=== PATIENT | female | born 1955 | race Caucasian/White ===

== ENCOUNTER → 2016-08-05 | Outpatient (CLI) | payer BC ==
[2016-08-05 10:04] LABS: ALT/SGPT 107 U/L (12-78); AST/SGOT 57 U/L (15-37); BLOOD UREA NITROGEN 20 mg/dl (7-18); BUN/CREATININE RATIO 21.8 (10-20); CALCIUM 8.8 mg/dl (8.5-10.1); CARBON DIOXIDE 27 mmol/L (21-32); CHLORIDE 106 mmol/L (98-107); CREATININE 0.91 mg/dl (0.60-1.20); GLUCOSE 144 mg/dl (70-99); POTASSIUM 4.5 mmol/L (3.5-5.1); SODIUM 140 mmol/L (136-145)
[2016-08-05 10:08] LABS: ALB/GLOB RATIO 1.1 (0.9-2); ALKALINE PHOSPHATASE 91 U/L (45-117); CHOLESTEROL 201 mg/dl (0-200); CHOLESTEROL/HDL RATIO 3.7; HDL CHOLESTEROL 54 mg/dl; LDL CHOLESTEROL CALCULATED 124 mg/dl; TRIGLYCERIDES 116 mg/dl (0-150); VERY LOW DENSITY LIPOPROT CALC 23 mg/dl
[2016-08-05 10:09] LABS: ESTIMATED AVERAGE GLUCOSE 137 mg/dl; HA1C FLAG Normal (Normal)
== END | disposition home or self-care (01) ==
LOC: C.LAB 06:50
PROVIDERS: ATTEND Nurse Practitioner Family
DX: E78.5 Hyperlipidemia, unspecified (principal); E11.9 Type 2 diabetes mellitus without complications

== ENCOUNTER → 2016-11-24 | Outpatient (CLI) | payer BC | END | disposition home or self-care (01) | LOC: C.PAPS 16:12 | PROVIDERS: ATTEND Obstetrics & Gynecology | DX: Z01.419 Encounter for gynecological examination (general) (routine) without abnormal findings (principal) ==

== ENCOUNTER → 2017-05-01 | Outpatient (CLI) | payer BC ==
[2017-05-01 10:24] LABS: BLOOD UREA NITROGEN 23 mg/dl (7-18); BUN/CREATININE RATIO 25.5 (10-20); CALCIUM 9.1 mg/dl (8.5-10.1); CARBON DIOXIDE 28 mmol/L (21-32); CHLORIDE 104 mmol/L (98-107); CREATININE 0.88 mg/dl (0.60-1.20); GLUCOSE 142 mg/dl (70-99); POTASSIUM 4.5 mmol/L (3.5-5.1); SODIUM 141 mmol/L (136-145)
[2017-05-01 10:28] LABS: CHOLESTEROL 203 mg/dl (0-200); CHOLESTEROL/HDL RATIO 3.4; HDL CHOLESTEROL 59 mg/dl; LDL CHOLESTEROL CALCULATED 117 mg/dl; TRIGLYCERIDES 137 mg/dl (0-150); VERY LOW DENSITY LIPOPROT CALC 27 mg/dl
[2017-05-01 10:46] LABS: ESTIMATED AVERAGE GLUCOSE 143 mg/dl; HA1C FLAG Normal (Normal)
== END | disposition home or self-care (01) ==
LOC: C.LAB 06:46
PROVIDERS: ATTEND Nurse Practitioner
DX: E78.5 Hyperlipidemia, unspecified (principal); I10 Essential (primary) hypertension; E11.9 Type 2 diabetes mellitus without complications

== ENCOUNTER → 2017-05-25 | Outpatient (CLI) | payer BC ==
--- NOTE | 2017-05-25 14:36 | MAMMOGRAPHY REPORT ---
BILATERAL DIGITAL SCREENING MAMMOGRAM TOMOSYNTHESIS WITH CAD: 05/25/2017 CLINICAL HISTORY: Routine screening. Patient has no complaints. TECHNIQUE: Breast tomosynthesis in addition to standard 2D mammography was performed. Current study was also evaluated with a Computer Aided Detection (CAD) system. COMPARISON: Comparison is made to exams dated: 05/23/2016 mammogram, 05/19/2015 mammogram, 05/13/2014 mammogram, 05/10/2013 mammogram, 05/07/2012 mammogram, and 05/07/2012 ultrasound - [facility]. BREAST COMPOSITION: The tissue of both breasts is heterogeneously dense, which may obscure small mas ses. FINDINGS: No suspicious masses, calcifications, or areas of architectural distortion are noted in ei ther breast. There has been no significant interval change compared to prior exams. Scattered bilater al benign-appearing calcifications are not significantly changed. Scattered bilateral benign-appeari ng calcifications are not significantly changed. IMPRESSION: ACR BI-RADS CATEGORY 2: BENIGN There is no mammographic evidence of malignancy. A 1 year screening mammogram is recommended. The pa tient will receive written notification of the results. Approximately 10% of breast cancers are not detected with mammography. A negative mammographic report should not delay biopsy if a clinically suggestive mass is present. Raine Carvalho M.D. ah/:05/25/2017 07:52:23 Chrome Cleaner: Diane LEMOS(R)(M), [facility] letter sent: Normal 1/2 BI-RADS Code: ACR BI-RADS Category 2: Benign
== END | disposition home or self-care (01) ==
LOC: C.MAMM 07:25
PROVIDERS: ATTEND Obstetrics & Gynecology
DX: Z12.31 Encounter for screening mammogram for malignant neoplasm of breast (principal)

== ENCOUNTER 2024-09-04 05:49 | Inpatient (IN) ==
--- NOTE | 2024-08-19 13:05 | PAT Medication Instructions ---
Medication Instructions Date of Service August 19, 2024 Home Medications Medication Instructions Recorded pen needle, diabetic 32 gauge x #50 ea 03/03/23" (BD Mira 2nd Gen Pen Needle) metformin 500 mg tablet,extended See Rx Instructions PO BID #180 08/04/23 release 24 hr tabs empagliflozin 25 mg tablet 25 mg PO DAILY #30 tabs 11/15/23 lisinopril 5 mg tablet 5 mg PO DAILY #90 tabs 03/13/24 rosuvastatin 40 mg tablet 40 mg PO DAILY #90 tabs 03/14/24 blood sugar diagnostic (OneTouch #100 ea 04/29/24 Verio test strips) lancets 33 gauge #100 ea 04/29/24 semaglutide 0.25 mg or 0.5 mg (2 0.5 mg (0.736 mL) subcut Q7D #3 mL 07/26/24 mg/3 mL) subcutaneous pen injector oxycodone 5 mg tablet 5 mg PO Q8H PRN pain #15 tabs 08/03/24 pantoprazole 40 mg tablet,delayed 40 mg PO DAILY #30 tabs 08/03/24 release (Protonix) gabapentin 300 mg capsule 300 mg PO .COMPLEX #30 caps 08/05/24 methylprednisolone 4 mg tablet 4 mg PO .COMPLEX 18 days #63 tabs 08/05/24 (Medrol) oxycodone-acetaminophen 5 mg-325 1 tab PO Q6H #20 tabs 25 mg tablet metformin 500 mg tablet,extended release 24 hr See Rx Instructions PO BID empagliflozin 25 mg tablet 25 mg PO DAILY lisinopril 5 mg tablet 5 mg PO DAILY rosuvastatin 40 mg tablet 40 mg PO DAILY cholecalciferol (vitamin D3) 50 mcg (2,000 unit) capsule (Vitamin D3) 1,000 unit PO BID semaglutide 0.25 mg or 0.5 mg (2 mg/3 mL) subcutaneous pen injector 0.5 mg (0.736 mL) subcut Q7D oxycodone 5 mg tablet 5 mg PO Q8H PRN pain pantoprazole 40 mg tablet,delayed release (Protonix) 40 mg PO DAILY gabapentin 300 mg capsule 300 mg PO .COMPLEX methylprednisolone 4 mg tablet (Medrol) 4 mg PO .COMPLEX oxycodone-acetaminophen 5 mg-325 mg tablet 1 tab PO Q6H Continue as directed rosuvastatin 40 mg tablet 40 mg PO DAILY pantoprazole 40 mg tablet,delayed release (Protonix) 40 mg PO DAILY gabapentin 300 mg capsule 300 mg PO .COMPLEX methylprednisolone 4 mg tablet (Medrol) 4 mg PO .COMPLEX STOP taking at least 7 days before surgery semaglutide 0.25 mg or 0.5 mg (2 mg/3 mL) subcutaneous pen injector 0.5 mg (0.736 mL) subcut Q7D STOP taking 3 days before surgery empagliflozin 25 mg tablet 25 mg PO DAILY DO NOT take the morning of surgery metformin 500 mg tablet,extended release 24 hr See Rx Instructions PO BID lisinopril 5 mg tablet 5 mg PO DAILY cholecalciferol (vitamin D3) 50 mcg (2,000 unit) capsule (Vitamin D3) 1,000 unit PO BID Take morning of surgery With a small sip of water, OTHERWISE NOTHING TO EAT OR DRINK AFTER MIDNIGHT: oxycodone 5 mg tablet 5 mg PO Q8H PRN pain (if needed) oxycodone-acetaminophen 5 mg-325 mg tablet 1 tab PO Q6H Take evening before surgery metformin 500 mg tablet,extended release 24 hr See Rx Instructions PO BID cholecalciferol (vitamin D3) 50 mcg (2,000 unit) capsule (Vitamin D3) 1,000 unit PO BID oxycodone 5 mg tablet 5 mg PO Q8H PRN pain (if needed) oxycodone-acetaminophen 5 mg-325 mg tablet 1 tab PO Q6H Other Notes If you have any questions please call us at [phone] or [phone] or [phone] or [phone]
--- NOTE | 2024-08-21 08:42 | Anesthesiology Consultation ---
Date of Service August 21, 2024 Assessment & Plan (1) Encounter for pre-operative examination: - Check BSG DOS - Infectious disease screening: Per assessment on 08/21/24- No known recent infectious disease contacts or current infectious disease symptoms. - Semaglutide instructions: Patient informed by PAT to stop 7 days prior to surgery- voiced understanding. DOS 09/04. Advised last dose to be 08/24/24. Chart Review Chart Review: Acceptable Risk for Surgery and Patient seen in Pre Admission Testing Teaching & Discussion Pre-Anesthesia Teaching/Discussion Notes: Instructed NPO after midnight before surgery,except medications with 15 cc of water. Medication instructions provided according to the PAT guidelines. History Surgery Operation Date: 09/04/24 07:30 Proposed Procedures p C4-C5, C5-C6 Artificial Disc Arthroplasty, C6-C7 Fusion with Cage - William Berger MD Height/Weight Height: 5 ft 4 in Weight: 54.2 kg Allergies Allergy/AdvReac Type Severity Reaction Status Date / Time No Known Drug Allergies Allergy Verified 08/21/24 11:05 Medications Home Medications Medication Instructions Recorded Confirmed Last Taken pen needle, diabetic 32 gauge x #50 ea 03/03/23 08/21/24 Unknown " (BD Mira 2nd Gen Pen Needle) metformin 500 mg tablet,extended See Rx Instructions PO BID #180 08/04/23 08/21/24 Unknown release 24 hr tabs empagliflozin 25 mg tablet 25 mg PO DAILY #30 tabs 11/15/23 08/21/24 Unknown lisinopril 5 mg tablet 5 mg PO DAILY #90 tabs 03/13/24 08/21/24 Unknown rosuvastatin 40 mg tablet 40 mg PO DAILY #90 tabs 03/14/24 08/21/24 Unknown blood sugar diagnostic (OneTouch #100 ea 04/29/24 08/21/24 Unknown Verio test strips) lancets 33 gauge #100 ea 04/29/24 08/21/24 Unknown cholecalciferol (vitamin D3) 50 1,000 unit PO BID 07/26/24 08/21/24 Unknown mcg (2,000 unit) capsule (Vitamin D3) semaglutide 0.25 mg or 0.5 mg (2 0.5 mg (0.736 mL) subcut Q7D #3 mL 07/26/24 08/21/24 Unknown mg/3 mL) subcutaneous pen injector oxycodone 5 mg tablet 5 mg PO Q8H PRN pain #15 tabs 08/03/24 08/21/24 Unknown pantoprazole 40 mg tablet,delayed 40 mg PO DAILY #30 tabs 08/03/24 08/21/24 Unknown release (Protonix) gabapentin 300 mg capsule 300 mg PO .COMPLEX #30 caps 08/05/24 08/21/24 Unknown methylprednisolone 4 mg tablet 4 mg PO .COMPLEX 18 days #63 tabs 08/05/24 08/21/24 Unknown (Medrol) oxycodone-acetaminophen 5 mg-325 1 tab PO Q6H #20 tabs 08/21/24 08/21/24 Unknown mg tablet Past Medical History Medical History Central cord syndrome Cervical stenosis of spine DM type 2 (diabetes mellitus, type 2) History of basal cell cancer Per records HTN (hypertension) Hyperlipidemia Microcalcification of left breast on mammogram Exercise / Class Metabolic Activity II 4-5 Yardwork/Stairs/Walk up hill (one FS: No CP, no SOB) Past Family History Family History Grandmother Family history of diabetes mellitus Breast cancer Dementia Mother Family history of diabetes mellitus Osteoporosis Father Hypertension Myocardial infarction Denies family history of Ovarian cancer Prostate cancer Colorectal cancer Past Surgical History Surgical History H/O colonoscopy History of laparoscopy Multiple (r/t endometriosis) Hx of basal cell carcinoma excision Hx of breast biopsy (07/11/23) benign Past Anesthesia History No Hx of Anesthesia Complications and No Family Hx of Anesthesia Complications History of PONV No Hx of PONV and No Hx of Motion Sickness Social History Smoking Status: Never smoker Do You Dip or Chew Tobacco: No Hx Alcohol Use: No Hx Substance Use: No substance use type: does not use Review of Systems Patient denies chest pain, shortness of breath, dyspnea on exertion, fever, chills, cough, wheezing. Physical Exam Vital Signs BP 99/64 (Patient notes BP typically low-normal range, asymptomatic) P 82 TEMP 98.0 SP02 97%RA RESP 16 Physical Full cervical extension range of motion. Full TMJ range of motion. TMD 3 finger breaths Mallampati Score III Dentition: intact, + multiple crowns Lungs: clear throughout to auscultation Cardiac: regular rate and rhythm, no murmurs noted Spine: normal Carotid arteries: negative bruit Extremities: no LE edema Lab Results Anesthesia Preop Results Results Anesthesia Widget: WBC 9.84 K/ul (4.8-10.8) 08/03/24 Hgb 12.3 g/dl (12.0-16.0) 08/03/24 Hct 36.7 % (37.0-47.0) L 08/03/24 Plt 205 K/uL (130-400) 08/03/24 Na 143 mmol/L (136-145) 08/03/24 K 3.7 mmol/L (3.5-5.1) 08/03/24 Cl 110 mmol/L (98-107) H 08/03/24 CO2 24 mmol/L (21-32) 08/03/24 BUN 22 mg/dl (6-23) 08/03/24 Creat 0.79 mg/dl (0.6-1.2) 08/03/24 Glucose Level 135 mg/dl (70-99(Fasting)) H 08/03/24 PT 10.2 Seconds (9.0-12.0) 08/21/24 PTT 23 Seconds (21-31) 08/21/24 INR 0.9 (0.9-1.1) 08/21/24 TSH 14.448 uIu/ml (0.300-4.500) H 08/03/24 Free T4 0.94 ng/dl (0.61-1.60) 08/03/24 HA1c 6.3 % (4.5-5.6) H 08/21/24 Urine Color Yellow 08/03/24 Urine Appearance Clear (Clear) 08/03/24 Urine pH 5.0 (4.5-7.5) 08/03/24 Urine Specific [place] 1.035 (1.000-1.030) H 08/03/24 Urine Protein 1+ (Negative) H 08/03/24 Urine Glucose (UA) 3+ (Negative) H 08/03/24 Urine Ketones Trace (Negative) H 08/03/24 Urine Blood 1+ (Negative) H 08/03/24 Urine Nitrite Negative (Negative) 08/03/24 Urine Bilirubin Negative (Negative) 08/03/24 Urine Urobilinogen Negative (Negative) 08/03/24 Urine Leukocyte Esterase Negative (Negative) 08/03/24 Urine WBC (Auto) 0-5 /hpf (0-5) 08/03/24 Urine RBC (Auto) 0-2 /hpf (0-2) 08/03/24 Urine Hyaline Casts (Auto) 3-5 /lpf (0-2) H 08/03/24 Urine Epithelial Cells (Auto) 0-2 /hpf (0-2) 08/03/24 Urine Bacteria (Auto) None Seen (None Seen) 08/03/24 Blood Type A Negative 08/21/24 Antibody Screen NEGATIVE 08/21/24 Testing Electrocardiogram Date: 08/03/24 NSR at 95bpm. Low voltage QRS. Chest X-Ray Date: 08/03/24 IMPRESSION: Normal chest X-ray. No acute cardiopulmonary abnormalities identified. Other Testing Cervical spine MRI Date: 08/03/24 IMPRESSION: 1. No acute traumatic findings within the cervical spine prior MRI. 2. Moderate degenerative disc disease and facet arthrosis within the cervical spine. Moderate multilevel central canal stenosis, as detailed above. No associated cord signal abnormality although cord signal suboptimally assessed on axial images. 3. Severe multilevel neural foraminal stenosis, as detailed above. ADDENDUM Addendum: Upon further review, there is trace prevertebral edema at the C7-T1 level. Cervical cord signal is suboptimally assessed. However, there is an equivocal 3 mm T2 hyperintense focus within the cord at the C6 level. A small focus of cord edema cannot be excluded. Findings discussed with Dr. Mueller at time of addendum.
[2024-09-04] MEDS: LR 60ML/HR IV SCH (06:26)
[2024-09-04] MEDS: LR 15ML/HR IV SCH (06:37)
[2024-09-04] MEDS: ACETAMINOPHEN 500 MG TAB PO SCH (06:38)
[2024-09-04] MEDS: GABAPENTIN 300 MG CAP PO SCH ×2 (06:38→15:36)
[2024-09-04] MEDS ORDERED: NALOXONE HCL 0.4 MG/1 ML VIAL/CARP IV PRN ×2 (06:58→12:42)
[2024-09-04] MEDS ORDERED: ONDANSETRON INJ 2 MG/ML 2 ML VIAL ONE (06:58)
[2024-09-04] MEDS ORDERED: ONDANSETRON INJ 2 MG/ML 2 ML VIAL IV PRN ×2 (06:58→12:42)
[2024-09-04] MEDS ORDERED: LIDOCAINE 2% 2 ML VIAL/AMP(20MG/ML) INFIL ONE (06:58)
[2024-09-04] MEDS ORDERED: fentaNYL citrate PF 100 MCG/2 ML VIAL IV PRN (06:58)
[2024-09-04] MEDS ORDERED: PROMETHAZINE HCL 6.25 MG in SODIUM CHLORIDE 0.9% 50 ML IV PRN (06:58)
[2024-09-04] MEDS ORDERED: ROCURONIUM BROMIDE 10 MG/ML 5 ML VIAL IV ONE ×3 (06:58→09:19)
[2024-09-04] MEDS ORDERED: fentaNYL citrate PF 100 MCG/2 ML VIAL ONE ×3 (06:58→09:59)
[2024-09-04] MEDS ORDERED: PROPOFOL IV EMULSION 10 MG/ML 20 ML VIAL IV ONE (06:58)
[2024-09-04] MEDS ORDERED: DEXAMETHASONE SOD INJ 4 MG/ML VIAL ONE (06:58)
[2024-09-04] MEDS ORDERED: ePHEDrine sulfate 50 MG/ML AMP IV PRN (06:58)
[2024-09-04] MEDS ORDERED: FLUMAZENIL 0.1 MG/1 ML 10 ML VIAL IV PRN (06:58)
[2024-09-04] MEDS ORDERED: ATROPINE SULFATE 0.1 MG/ML 10ML SYR IV PRN (06:58)
[2024-09-04] MEDS ORDERED: MIDAZOLAM HCL 1 MG/ML 2ML VIAL ONE (06:58)
--- NOTE | 2024-09-04 07:18 | History & Physical Bridge Note ---
Date of Service September 04, 2024 History & Physical Bridge Note I have examined the patient, reviewed the History & Physical and in the interval since the performance of the History & Physical I have noted the following changes of clinical significance: no changes noted Anterior decompression, fusion, cage placement at C6-7 and either fusion or disc arthroplasty at C5-6 and C4-5.
[2024-09-04] MEDS ORDERED: SUCCINYLCHOLINE 100MG/5ML SYR IV ONE (07:48)
[2024-09-04] MEDS ORDERED: ePHEDrine sulfate 50 MG/5 ML SYR ONE (08:11)
[2024-09-04] MEDS: ceFAZolin 2000MG 2,000 MG/15 ML SYR IV SCH (08:30)
[2024-09-04] MEDS ORDERED: METOPROLOL TARTRATE 1 MG/ML VIAL IV ONE (08:58)
[2024-09-04] MEDS ORDERED: SUGAMMADEX SODIUM 200 MG/2 ML VIAL IV ONE (09:19)
[2024-09-04] MEDS ORDERED: PHENYLEPHRINE 100MCG/ML 10ML SYR IV ONE (09:20)
[2024-09-04] MEDS ORDERED: ceFAZolin 330 MG/ML 1 GM VIAL ONE (12:17)
[2024-09-04] MEDS: VANCOMYCIN HCL 1000MG/20ML VIAL ONE (12:25)
[2024-09-04] MEDS: FLOSEAL HEMOSTATIC MATRIX 10ML TOP ONE (12:25)
[2024-09-04] MEDS: THROMBIN 5000 UNITS KIT ONE (12:31)
[2024-09-04] MEDS: GELATIN SPONGE 12-7MM ONE (12:31)
--- NOTE | 2024-09-04 12:41 | Post Operative Brief Note ---
PG Immediate Post Op with CF Date of Surgery September 04, 2024 Pre & Post Diagnosis Operation Date: 09/04/24 07:30 Pre-Op Diagnosis: Cervical Stenosis of Spine, Central Cord Syndrome Post-Op Diagnosis: Cervical Stenosis of Spine, Central Cord Syndrome I identified the patient and participated in the time-out.: Yes Procedure Operation Date: 09/04/24 07:30 Actual Procedures p C4-C5, C5-C6 Artificial Disc Arthroplasty, C6-C7 Fusion with Cage(Not Applicable) - William Berger MD Surgeon William Berger MD Software Engineer Advisor Krishan Mims Estimated Blood Loss 10 Findings Consistent with Post-Op Diagnosis Specimens Specimen Description: No specimen per surgeon Drains Hernández Catheter (12fr hernández catheter inserted prior to procedure by Maico JOHNSON without difficulty. Clear yellow urine noted. To be removed at end of procedure.)
[2024-09-04] MEDS ORDERED: ONDANSETRON 4 MG OD TAB PO PRN (12:42)
[2024-09-04] MEDS ORDERED: RACEPINEPHRINE 2.25% NEBU SOLN 0.5 ML VIAL INH PRN (12:42)
[2024-09-04] MEDS ORDERED: LORazepam 0.5 MG TAB PO PRN (12:42)
[2024-09-04] MEDS ORDERED: bisacodyL 10 MG SUPP PR PRN (12:42)
[2024-09-04] MEDS ORDERED: METOCLOPRAMIDE HCL INJ 5 MG/ML 2 ML VIAL IV PRN (12:42)
[2024-09-04] MEDS ORDERED: SOD PHOSPHATE/SOD BIPHOSPHATE ENEMA 132 ML BTL PR PRN (12:42)
[2024-09-04] MEDS ORDERED: LORazepam 2 MG/1 ML VIAL IV PRN (12:42)
[2024-09-04] MEDS ORDERED: dexAMETHasone 8 MG in SYRINGE 0 ML IV PRN (12:42)
[2024-09-04] MEDS ORDERED: ALUMINUM/MAGNESIUM SUSP 30 ML UDC PO PRN (12:42)
[2024-09-04] MEDS ORDERED: ACETAMINOPHEN 1,000 MG/100 ML VIAL IV PRN (12:42)
[2024-09-04] MEDS ORDERED: MAGNESIUM HYDROXIDE SUSP 30 ML UDC PO PRN (12:42)
[2024-09-04] MEDS ORDERED: DO NOT ADMINISTER PNEUMOCOCCAL VACCINE PRN (12:42)
[2024-09-04] MEDS ORDERED: diphenhydrAMINE Capsule 25 MG CAP PO PRN (12:42)
[2024-09-04] MEDS ORDERED: FAMOTIDINE 20 MG TAB PO PRN (12:42)
[2024-09-04] MEDS ORDERED: PHARMACY GLYCEMIC MGMT CONSULT PRN (12:42)
[2024-09-04] MEDS ORDERED: DO NOT ADMINISTER FLU VACCINE PRN (12:42)
[2024-09-04] MEDS ORDERED: ACETAMINOPHEN 500 MG TAB PO PRN (12:42)
[2024-09-04] MEDS ORDERED: hydrOXYzine HCl 25 MG TAB PO PRN (12:42)
[2024-09-04] MEDS ORDERED: PROMETHAZINE 12.5 MG/50.5 ML BAG IV PRN (12:42)
[2024-09-04] MEDS ORDERED: NON-FORMULARY MEDICATION (Pen Needle, Diabetic [Bd Nano 2nd Gen Pen Needle] 32 gauge x 5/3 SCH (13:00)
[2024-09-04] MEDS ORDERED: NON-FORMULARY MEDICATION (Blood Sugar Diagnostic [Onetouch Verio Test Strips] strip) SCH (13:00)
[2024-09-04] MEDS ORDERED: LANCETS SCH (13:00)
[2024-09-04] MEDS ORDERED: NON-FORMULARY MEDICATION (Semaglutide 0.25 mg or 0.5 mg (2 mg/3 mL) pen injector) SQ SCH (13:00)
--- NOTE | 2024-09-04 13:18 | Fluoroscopy Report ---
FL cervical 2-3V CLINICAL HISTORY: C4-C5, C5-C6, ARTHROPLASTY C6-C7 FUSION COMPARISON STUDY: None FLUOROSCOPY TIME: 2 minutes 40 seconds FLUOROSCOPY IMAGES: 16 EXPOSURE DOSE: 19 mGy FINDINGS: Fluoroscopy was provided for cervical spine surgery. IMPRESSION: Intraoperative fluoroscopy. ACT 112: Negative or not required by law. Electronically signed by: Corey Esteves M.D. 09/04/2024 1:16 PM
[2024-09-04 13:44] LABS: BUN Creatinine Ratio 26.1 (10-20); Calcium 8.8 mg/dl (8.6-10.3); Creatinine Clr Calc Pharmacy 64.6 ml/min; Potassium 3.8 mmol/L (3.5-5.1)
--- NOTE | 2024-09-04 13:59 | Pharmacy Report ---
Pharmacy Glycemic Short Note 2 - Date of Service September 04, 2024 - Glycemic Short BSG Results (Last 24 hours): 09/04/24 09/04/24 12:51 12:58 Glucose 172 H POC Glucose 159 H OUTPATIENT ANTIDIABETIC REGIMEN: * empagliflozing 25 mg, metformin, ozempic * A1c 6.3% 08/21/24 ASSESSMENT: * Patient admitted following spinal surgery, history of type II diabetes controlled with oral medications/glp-1 * BSG 159 mg/dL post-operatively, dex 8 mg IV * Will begin basal/bolus and monitor with overnight checks PLAN FOR INPATIENT GLYCEMIC CONTROL: * Hold outpatient oral diabetes medications * Basal insulin * Lantus 10 units SQ x1 * Bolus insulin * NovoLog per scale ACHS or Q6hrs while NPO * Goal Range: Low 110 mg/dL - High 160 mg/dL * Correction Factor: 35 mg/dL/unit * Nutritional / Prandial insulin per carb ratio of 1 unit per 12 grams CHO consumed
--- NOTE | 2024-09-04 14:11 | Anesthesiology Progress Note ---
Date of Service September 04, 2024 Anesthesia Post Procedure Vital Signs Vital Signs: Temp Pulse Resp BP Pulse Ox O2 Del Method O2 Flow Rate 09/04/24 14:05 36.6 C 97 H 13 132/89 95 Room Air 0 09/04/24 13:55 97 H 18 128/82 95 Room Air 0 09/04/24 13:45 89 12 120/81 99 Room Air 0 09/04/24 13:35 90 13 110/86 100 Nasal Cannula 2 09/04/24 13:25 89 14 122/81 100 Oxymask 4 09/04/24 13:15 88 20 132/84 100 Oxymask 4 09/04/24 13:05 92 H 12 126/72 100 Oxymask 4 09/04/24 12:55 91 H 18 125/76 100 Oxymask 8 09/04/24 12:47 36.0 C L 92 H 12 115/69 99 Oxymask 8 09/04/24 06:24 36.5 C 78 18 136/64 97 Room Air Pain Intensity Right Shoulder: Pain Intensity: 0 Transfer of Care Handoff Completed per policy Notes Mental Status: alert / awake / arousable Patient Amnestic to Procedure: Yes Nausea / Vomiting: adequately controlled Pain: adequately controlled Airway Patency, RR, SpO2: stable & adequate BP & HR: stable & adequate Hydration State: stable & adequate Anesthetic Complications: no major complications apparent
[2024-09-04] MEDS: oxyCODONE/ACETAMINOPHEN 5mg/325mg TAB PO PRN (14:48)
[2024-09-04] MEDS: INSULIN ASPART PER UNIT CHARGE SC SCH ×2 (15:00→23:59)
[2024-09-04] MEDS: LANTUS PER UNIT CHARGE SC ONE ×2 (15:01→22:17)
[2024-09-04] MEDS: HYDROmorphone INJ 0.5 MG/0.5 ML SYR IV PRN (15:36)
--- NOTE | 2024-09-04 16:47 | Hospitalist Consultation ---
Date of Consultation September 04, 2024 Assessment & Plan (1) Cervical stenosis of spine: (2) Diabetes mellitus, type 2: (3) Hypertension: (4) Hyperlipidemia: Plan 69-year-old female status post cervical spine surgery of C4-5 C5-6 artificial disc arthroplasty, C6-[address] fusion [address] cage [address] Gregory on 09/04/2024 surgery performed due to cervical radiculopathy and central cord syndrome per H&P from orthopedic spine. Patient's medical history includes type 2 diabetes on empagliflozin and semaglutide and metformin. Neuropathy treatment with gabapentin, hypertensive treatment with lisinopril which is also renal protective for her diabetes and rosuvastatin for dyslipidemic and risk reduction Cervical spine surgery pain control drains will be managed by the primary care team With regard to her diabetes her medications are on hold she is on sliding scale insulin with pharmacy glycemic management With regard to her diabetic risk reduction she will continue on gabapentin for neuropathy and lisinopril both for hypertension and renal protective effects Rosuvastatin will be continued for dyslipidemia for post op eye irritation will use naphcon A History of Present Illness Attending Physician: William Berger MD History of Present Illness 69-year-old female status post cervical spine surgery of C4-5 C5-6 artificial disc arthroplasty, C6-7 fusion [address] cage from Dr[address] Boyce on 09/04/2024 surgery performed due to cervical radiculopathy and central cord syndrome per H&P from orthopedic spine. Patient's medical history includes type 2 diabetes on empagliflozin and semaglutide and metformin. Neuropathy treatment with gabapentin, hypertensive treatment with lisinopril which is also renal protective for her diabetes and rosuvastatin for dyslipidemic and risk reduction Postoperatively orthospine has ordered a pharmacy glycemic management consult to assist in her diabetic management Allergies Allergy/AdvReac Type Severity Reaction Status Date / Time No Known Drug Allergies Allergy Verified 09/04/24 06:22 Home Medications Medication Instructions Recorded Confirmed Type pen needle, diabetic 32 gauge x #50 ea 03/03/23 08/21/24 Rx 5/32" (BD Mira 2nd Gen Pen Needle) metformin 500 mg tablet,extended See Rx Instructions PO BID #180 08/04/23 09/04/24 Rx release 24 hr tabs lisinopril 5 mg tablet 5 mg PO DAILY #90 tabs 09/25/24 03/19/25 Rx rosuvastatin 40 mg tablet 40 mg PO DAILY #90 tabs 03/14/24 09/04/24 Rx blood sugar diagnostic (OneTouch #100 ea 04/29/24 08/21/24 Rx Verio test strips) lancets 33 gauge #100 ea 04/29/24 08/21/24 Rx cholecalciferol (vitamin D3) 50 1,000 unit PO BID 07/26/24 09/04/24 History mcg (2,000 unit) capsule (Vitamin D3) semaglutide 0.25 mg or 0.5 mg (2 0.5 mg (0.736 mL) subcut Q7D #3 mL 07/26/24 09/04/24 Rx mg/3 mL) subcutaneous pen injector oxycodone 5 mg tablet 5 mg PO Q8H PRN pain #15 tabs 08/03/24 09/04/24 Rx pantoprazole 40 mg tablet,delayed 40 mg PO DAILY #30 tabs 08/03/24 09/04/24 Rx release (Protonix) gabapentin 300 mg capsule 300 mg PO .COMPLEX #30 caps 08/05/24 09/04/24 Rx empagliflozin 25 mg tablet 25 mg PO DAILY 09/04/24 09/04/24 History (Jardiance) Patient History Medical History Central cord syndrome Cervical stenosis of spine DM type 2 (diabetes mellitus, type 2) History of basal cell cancer Per records HTN (hypertension) Hyperlipidemia Microcalcification of left breast on mammogram Surgical History H/O colonoscopy History of laparoscopy Multiple (r/t endometriosis) Hx of basal cell carcinoma excision Hx of breast biopsy (07/11/23) benign Family History Grandmother Family history of diabetes mellitus Breast cancer Dementia Mother Family history of diabetes mellitus Osteoporosis Father Hypertension Myocardial infarction Denies family history of Ovarian cancer Prostate cancer Colorectal cancer Social History Smoking Status: Never smoker Second Hand Exposure: No; Do You Dip or Chew Tobacco: No; Tobacco Cessation Education Requested by Patient: No Hx Alcohol Use: No Hx Substance Use: No Preferred Language: Indian Communication Ability: Effective Visual Impairment: Limited Hearing Ability: Normal Social Media Strategist Required: No Beliefs That Will Affect Care: None marital status: Current Living Situation: Spouse current occupational status: retired How many Children do You have: 2 Other Information That Helps Us Care for You: No Feels Safe at Home: Yes Safety Concerns: Feels Safe At This Time Childhood Exposure to Second-Hand Smoke: Yes Diet: regular caffeine: Yes (coffee) during the past year weight has: remained stable Dental Care, Regularly: Yes Physical Activity Frequency: Daily Seatbelt Use: always Sunscreen Use: Yes Assistive Devices: Glasses and Hearing Aid - Bilateral Physical Exam Physical Exam: The patient appeared well nourished and normally developed. Vital signs as documented. Head exam is normocephalic atraumatic c/o eye irritation, mild injection right eye Neck is without JVD, thyromegaly, or carotid bruits wearing [place] J collar. Lungs are clear to auscultation, no focal loss of breath sounds Cardiac exam, Rhythm is regular.. No murmurs, rubs or gallops. Abdominal exam reveals normal bowel sounds, soft non tender, no masses Extremities are nonedematous and both pedal pulses are present Neurologic exam is alert and oriented, no focal loss of strength or sensation hand strength is equal bilaterally Psychologically is without concerns for anxiety or depression.. Results & Data Results & Data Vital Signs (Past 12 Hours) Vital Signs Temp Pulse Pulse Resp BP Pulse Ox O2 Del Method 09/04/24 16:31 97.2 F L 102 H 16 128/75 99 Room Air 09/04/24 15:34 102 H 16 95 Room Air 09/04/24 15:32 100 H 18 134/76 93 Room Air 09/04/24 15:00 97.3 F L 92 H 16 139/81 97 Room Air 09/04/24 14:30 97.7 F 97 H 16 130/80 95 Room Air 09/04/24 14:20 98 H 12 139/85 95 Room Air 09/04/24 14:05 97.9 F 97 H 13 132/89 95 Room Air 09/04/24 13:55 97 H 18 128/82 95 Room Air 09/04/24 13:45 89 12 120/81 99 Room Air 09/04/24 13:35 90 13 110/86 100 Nasal Cannula 09/04/24 13:25 89 14 122/81 100 Oxymask 09/04/24 13:15 88 20 132/84 100 Oxymask 09/04/24 13:05 92 H 12 126/72 100 Oxymask 09/04/24 12:55 91 H 18 125/76 100 Oxymask 09/04/24 12:47 96.8 F L 92 H 12 115/69 99 Oxymask 09/04/24 06:24 97.7 F 78 18 136/64 97 Room Air O2 Flow Rate 09/04/24 16:31 09/04/24 15:34 09/04/24 15:32 09/04/24 15:00 09/04/24 14:30 09/04/24 14:20 0 09/04/24 14:05 0 09/04/24 13:55 0 09/04/24 13:45 0 09/04/24 13:35 2 09/04/24 13:25 4 09/04/24 13:15 4 09/04/24 13:05 4 09/04/24 12:55 8 09/04/24 12:47 8 09/04/24 06:24 Laboratory Results reviewed chemistry PG Care Time/CCT Total # of Minutes Spent Total Time Spent with Patient: Total time spent is greater than 50% in coordination of care (as documented) at patient's floor/unit and/or counseling patient: Coding Level of Care Code 97296 IN/OBS CONSULT LVL 4,60M Diagnoses Cervical stenosis of spine M48.02 Type 2 diabetes mellitus without complication, without long-term current use of insulin E11.9 Diabetes mellitus complication status: without complication Diabetes mellitus detention insulin use: without detention use Primary hypertension I10 Hypertension type: primary hypertension Pure hypercholesterolemia E78.00 Hyperlipidemia type: pure hypercholesterolemia (2) Diabetes mellitus, type 2 Diabetes mellitus complication status: without complication Diabetes mellitus detention insulin use: without brick pointer use Qualified Code(s): E11.9 - Type 2 diabetes mellitus without complications (3) Hypertension Hypertension type: primary hypertension Qualified Code(s): I10 - Essential (primary) hypertension (4) Hyperlipidemia Hyperlipidemia type: pure hypercholesterolemia Qualified Code(s): E78.00 - Pure hypercholesterolemia, unspecified
[2024-09-04] MEDS: ceFAZolin 1000MG 1,000 MG/7.5 ML SYR IV SCH (18:21)
[2024-09-04] MEDS: NAPHAZOLIN/PHENIRAMIN OPH SOLN 15 ML BTL OP PRN (19:25)
[2024-09-04] MEDS ORDERED: metFORMIN HCL ER 500 MG TABCR PO SCH (21:00)
[2024-09-04] MEDS: DOCUSATE SODIUM/SENNA 50/8.6MG TAB PO SCH (21:42)
[2024-09-05] MEDS: POLYETHYLENE (MIRALAX) 17 GM PACK PO SCH (05:57)
[2024-09-05] MEDS: lisinopril 5 MG TAB PO SCH (07:30)
[2024-09-05 08:00] VITALS: RESP 14
[2024-09-05 09:16] VITALS: BP 121/74; PULSE 87; TEMP 98.1; O2SAT 98
--- NOTE | 2024-09-05 10:08 | Orthopedic Progress Note ---
Date of Service September 05, 2024 Subjective Patient seen and examined, she is up and eating breakfast without any issues, she notes a distinct improvement in both upper extremities relative to some the numbness and tingling and pain that she was having prior to surgery no significant axial symptomatology. Dressing is unremarkable with a small amount of drainage present, no new motor deficits in the upper extremities. Impression/plan: Status post C4-5 C5-6 and C6-7 anterior decompression, combination disc arthroplasty with also arthrodesis at C6-7. Will have the patient discharged today as she is doing well, prescriptions will be sent, follow-up in 2 weeks. Care for the incision site was discussed. Review of Systems All systems reviewed & are unremarkable except as noted in HPI & below. Physical Exam . Results & Data Results & Data Laboratory Results . Diagnostic Findings . PG Care Time/CCT Total # of Minutes Spent Total Time Spent with Patient: Total time spent is greater than 50% in coordination of care (as documented) at patient's floor/unit and/or counseling patient: Coding Level of Care Code 70422 Post Operative Follow-Up
--- NOTE | 2024-09-05 10:11 | Discharge Summary ---
Date of Service September 05, 2024 Admission HPI (Per Admitting) Cervical stenosis, central cord syndrome. Principal Diagnosis Same as "Discharge Diagnosis" noted below under Discharge Instructions. Discharge Exam . Discharge Data Consultations 09/04/24 12:47 Consult Hospitalist Routine Procedures Performed Operation Date: 09/04/24 07:30 Actual Procedures p C4-C5, C5-C6 Artificial Disc Arthroplasty, C6-C7 Fusion with Cage(Not Applicable) - William Berger MD Ordered Studies 09/04/24 [place] cervical 2-3V Routine Hospital Course (1) Cervical stenosis of spine: (2) Central cord syndrome: PG Care Time/CCT Total # of Minutes Spent Total Time Spent with Patient: Total time spent is greater than 50% in coordination of care (as documented) at patient's floor/unit and/or counseling patient: Discharge Plan Discharge Items Patient Disposition: Home - Self-Care Reason For Visit: Cervical Stenosis of Spine, Central Cord Syndrome, Discharge Diagnosis: Cervical stenosis, central stenosis cord syndrome Condition on Discharge: Good Activity: As commented below Lifting: No more than 10 pounds Bathing: May shower/bathe in 3 days Exercise/Sports: Wait until after follow-up appointment Weightbearing: Full weightbearing Non-emergency contact: Surgeon Call non-emergency contact if: your pain is worsening Follow-up/Referrals: Carolann Dumont CRNP [Primary Care Provider] - Diet: Regular Addtl Attending Provider Instructions: oxycodone for pain, No NSAIDs Pending Studies at Discharge: No Stand-Alone Forms: [employer], Smoking Cessation Medications and DC Order Prescriptions: New oxycodone-acetaminophen [Percocet] 5-325 mg Tablet 1 tab PO TID PRN (Reason: Pain) Qty: 20 0RF Continued (DME) pen needle, diabetic [BD Mira 2nd Gen Pen Needle] 32 gauge x 5/32" needle See Rx Instructions .ROUTE .MEDSUPPLY Qty: 50 1RF Rx Instructions: Change a new pen needle every day metformin 500 mg tablet extended release 24 hr See Rx Instructions PO BID Qty: 180 3RF Hold Instructions: Question if needed Rx Instructions: On hold lisinopril 5 mg tablet 5 mg PO DAILY Qty: 90 3RF rosuvastatin 40 mg tablet 40 mg PO DAILY Qty: 90 3RF (DME) OneTouch Verio test strips Strip See Rx Instructions .ROUTE .MEDSUPPLY Qty: 100 3RF Rx Instructions: test 2 x a day (DME) lancets 33 gauge misc See Rx Instructions .ROUTE .MEDSUPPLY Qty: 100 3RF Rx Instructions: test 2 x a day semaglutide 0.25 mg or 0.5 mg (2 mg/3 mL) pen injector 0.5 mg subcut Q7D Qty: 3 6RF gabapentin 300 mg capsule 300 mg PO .COMPLEX Qty: 30 2RF Rx Instructions: 300 mg orally Take 1 pill daily for 2 days, then 2 pills for 2 days, then 3 pills/day. cholecalciferol (vitamin D3) [Vitamin D3] 50 mcg (2,000 unit) capsule 1,000 unit PO BID Jardiance 25 mg tablet 25 mg PO DAILY pantoprazole [Protonix] 40 mg tablet,delayed release (DR/EC) 40 mg PO DAILY Qty: 30 0RF oxycodone 5 mg tablet 5 mg PO Q8H PRN (Reason: pain) Qty: 15 0RF Discharge Orders: Discharge Order (Routine); Ordered 09/05/24 Ordered By: William Berger Admission Data Admit Date/Time: 09/04/24 12:42 Attending Provider: William Berger Admit Provider: William Berger Primary Care Provider: Carolann Dumont Other Providers: Michael Anaya
--- NOTE | 2024-09-05 11:46 | Communication Note ---
Date of Service: September 05, 2024 Patient discharged prior to being seen by labs/vitals reviewed and appears stable and primary service note reporting significant improvement in her symptom s following surgery and stable for discharge. Please call with any questions/concerns.
--- NOTE | 2024-09-05 15:57 | Operative Report ---
PG Post Operative Report Pre & Post Diagnosis Operation Date: 09/04/24 07:30 Pre-Op Diagnosis: Cervical Stenosis of Spine, Central Cord Syndrome Post-Op Diagnosis: Cervical Stenosis of Spine, Central Cord Syndrome I identified the patient and participated in the time-out.: Yes Procedure Operation Date: 09/04/24 07:30 Actual Procedures p C4-C5, C5-C6 Artificial Disc Arthroplasty, C6-C7 Fusion with Cage(Not Applicable) - William Berger MD Surgeon William Berger MD Wood Barker Krishan Mims Estimated Blood Loss 10 Findings Consistent with Post-Op Diagnosis Specimens none Description of Procedure 1. C6-7 anterior cervical decompression, arthrodesis. (29991) 2. C6-7 anterior interbody cage with fixation, ROIC, 7 x 14 x 17 mm. (47077) 3. C5-6 anterior decompression/cervical artificial disc replacement, Mobi-C 15 x 17 x 4.5 mm. ([id number]) 4. C4-5 anterior decompression/cervical disc replacement, Mobi-C 15 x 15 x 4.5 mm. ([id number]) Patient taken the operating room and placed supine on the OSI flattop table. After doing so, preprepped was performed followed by then positioning the patient in routine fashion for anterior approach to the cervical spine. Fluoroscopy was used to colby for the area of the incision followed by prep and drape. Transverse incision was made over the C5-6 level, and I advanced down slowly to the anterior aspect of the cervical spine along the medial border the sternocleidomastoid and routine approach to the 3 levels documented fluoroscopy. First starting at the C4-5 level, distractor pins were placed under fluoroscopic control followed by then retractors placed at the C4-5 level. Operative microscope was brought in, anterior annulotomy was performed followed by then a thorough discectomy with removal of disc material and cartilage from the endplates and advanced down to the posterior aspect of the interspace encountering the spondylosis. After a thorough discectomy, I then used a high- speed bur to thin and remove the posterior spondylosis, followed by then curettes and Kerrison punches to remove the remaining spondylosis and disc material down to the dura and out to the uncinates bilaterally. Upon completion of decompression, I then began with utilization of trials as the bone density appeared to be certainly adequate for disc arthroplasty, and I selected a size disc replacement as noted for the C4-5 level. This was then inserted with excellent position on AP and lateral views. The distractor pin at C4 was then removed, Floseal and bone wax was applied, I then placed this at the C6 level and then reset the retractors. In a similar fashion, under view of the microscope, anterior annulotomy was performed followed by then through removal of disc material and the decompression across the interspace in the same fashion as at the C4-5 level. Thorough decompression was completed at this level with removal of disc material and cartilage from the endplates. I then inserted the trial and selected the size as stated for this particular level, the device was inserted with excellent position on AP and lateral views. The distractor pin at C5 was then removed, Floseal and bone wax applied, I then replaced this at the C7 level. In similar fashion, the retractors were set anterior annulotomy was performed and I redid a thorough discectomy across the interspace and removal of cartilage and some of the endplate bone at this level. The decompression was completed in the same manner across the interspace down to the dura. A cage was then obtained after trials were utilized to ascertain the size, this was then filled with fusion materials, os design catalyst, and this was then tapped into position. The fixation fins were then inserted with excellent placement. Evaluation of the operative site revealed no notable oozing or bleeding, hemostasis had been maintained throughout the procedure, vancomycin powder was placed, bone wax had been applied to all the pin placement areas, operative site was closed using 3-0 Vicryl sutures and layers followed by benzoin and Steri- Strips and a sterile dressing. The patient was taken recovery room in satisfactory condition. I attest to the content of the Intraoperative Record and any orders documented therein. Any exceptions are noted below.
== END 2024-09-05 11:36 | disposition home or self-care (01) | DRG 473 ==
LOC: ASU 05:49 → 3E 12:42